=== PATIENT | male | born 1995 | race Two or more races ===

== ENCOUNTER 2021-08-16 16:31 | Emergency (ER) | payer MEDICAID, OTHER ==
[~2021-08-16] VITALS: Ht 180.3 cm; Wt 79.4 kg
[2021-08-16 17:22] VITALS: BP 121/79
[2021-08-16] MEDS ORDERED: CEPH500C PO (17:59)
[2021-08-16] MEDS ORDERED: NAPR500T31 PO (17:59)
== END 2021-08-16 18:07 | disposition home or self-care (01) ==
LOC: ER 16:34
DX: S21.131A Puncture wound without foreign body of right front wall of thorax without penetration into thoracic cavity, initial encounter (principal); Z79.899 Other long term (current) drug therapy; W34.09XA Accidental discharge from other specified firearms, initial encounter; Y93.89 Activity, other specified; Y92.89 Other specified places as the place of occurrence of the external cause; Y99.8 Other external cause status
CPT/HCPCS: 71046